=== PATIENT | male | born 1960 ===

== ENCOUNTER 2016-09-02 10:43 | Outpatient (CLI) | payer OTHER | END 2016-09-02 10:44 | disposition home or self-care (01) | LOC: CONVCARE 10:43 | PROVIDERS: ATTEND Orthopaedic Surgery | DX: M19.031 Primary osteoarthritis, right wrist (principal) | CPT/HCPCS: 73110 ==

== ENCOUNTER 2017-10-12 11:37 | Outpatient (CLI) | payer OTHER ==
[2017-10-12 11:50] LABS: BASOPHILS % (AUTO) 2 % (0-3); EOSINOPHILS % (AUTO) 3 % (0-9); HEMATOCRIT 48 % (39-53); HEMOGLOBIN 15.6 gm/dl (13.5-17.7); LYMPHOCYTES % (AUTO) 19.2 % (10-50); MEAN CORPUSCULAR HEMOGLOBIN 30.1 pg (27.0-32.0); MEAN CORPUSCULAR HGB CONC 32.7 gm/dl (32.0-36.0); MEAN CORPUSCULAR VOLUME 92 fL (80-100); MONOCYTES % (AUTO) 11.2 % (0-12); NEUTROPHILS % (AUTO) 65.6 % (37-80)
[2017-10-12 13:00] LABS: SEDIMENTATION RATE 0 mm/hr (0-15)
[2017-10-13 09:49] LABS: *LYME DISEASE SCREEN Negative (Negative)
[2017-10-14 10:49] LABS: *ANA SCREEN 0.3 U; *CYCLIC CITRULLINATE PEPTIDE <15.6 U
== END 2017-10-12 11:38 | disposition home or self-care (01) ==
LOC: CONVCARE 11:37
PROVIDERS: ATTEND Orthopaedic Surgery
DX: M79.641 Pain in right hand (principal); M79.89 Other specified soft tissue disorders
CPT/HCPCS: 36415; 84550; 85025; 85651

== ENCOUNTER 2018-01-11 10:11 | Day surgery (SDC) | payer OTHER ==
[2018-01-11] MEDS ORDERED: PROPOFOL 500 MG/50 ML EMU IV ONE (10:28)
[2018-01-11] MEDS ORDERED: FENTANYL 100MCG/2ML SOL ONE (10:29)
[2018-01-11] MEDS ORDERED: MIDAZOLAM 2 MG/2 ML SOL ONE (10:29)
[2018-01-11 10:41] VITALS: RESP 16
[2018-01-11] MEDS: LIDOCAINE HCL 2% MPF 10 ML SOL ONE ×2 (11:42→11:48)
[2018-01-11] MEDS: BUPIVACAINE HCL 0.5% MPF 10 ML SOL ONE ×2 (11:42→11:48)
[2018-01-11 13:27] VITALS: BP 108/74; PULSE 64; TEMP 97.1; O2SAT 95
== END 2018-01-11 13:18 | disposition home or self-care (01) ==
LOC: SURG 10:11
PROVIDERS: ATTEND Orthopaedic Surgery
DX: M65.841 Other synovitis and tenosynovitis, right hand (principal)
CPT/HCPCS: J2250; J3010; A6402; J2704

== ENCOUNTER → 2018-10-18 | Day surgery (SDC) | payer BC, OTHER ==
[~2018-10-18] MED LIST: FENTANYL 100MCG/2ML SOL ONE; LIDOCAINE HCL 2% MPF 10 ML SOL ONE; MIDAZOLAM 2 MG/2 ML SOL ONE; PROPOFOL 500 MG/50 ML EMU IV ONE
[2018-10-18 09:15] VITALS: RESP 16
[2018-10-18 12:36] VITALS: BP 104/66; PULSE 63; TEMP 97.3; O2SAT 94
== END | disposition home or self-care (01) ==
LOC: SURG 08:55
PROVIDERS: ATTEND Orthopaedic Surgery
DX: M65.312 Trigger thumb, left thumb (principal)
CPT/HCPCS: J2250; J3010; A6402; J2704